=== PATIENT | female | born 1960 ===

== ENCOUNTER 2016-12-11 15:49 | Emergency (ER) | payer OTHER ==
[2016-12-11 16:07] VITALS: BP 112/81; PULSE 80; RESP 16; TEMP 98.4; O2SAT 97
[2016-12-11 17:24] LABS: BASO % 0.7 % (0.0-2.0); EOS % 0.2 % (0.0-4.0); HEMATOCRIT 38.6 % (34.0-47.0); LYMPH # 1.4 K/uL (1.0-4.3); LYMPH % 28.9 % (20.0-40.0); MEAN CELL VOLUME 92.2 fl (81.0-99.0); MEAN CORPUSCULAR HEMOGLOBIN 31.5 pg (27.0-31.0); MEAN CORPUSCULAR HGB CONC 34.2 g/dL (33.0-37.0); MEAN PLATELET VOLUME 8.1 fl (7.2-11.7); MONO # 0.4 K/uL (0.0-0.8); MONO % 9.1 % (0.0-10.0); NEUT % 61.1 % (50.0-75.0); NRBC % 0.1 % (0.0-0.0); RED CELL DISTRIBUTION WIDTH 13.7 % (11.5-14.5); WHITE BLOOD COUNT 4.9 K/uL (4.8-10.8)
[2016-12-11 17:44] LABS: ALB/GLOB RATIO 1.2 (1.0-2.1); ALKALINE PHOSPHATASE 77 U/L (38-126); ALT/SGPT 24 U/L (9-52); AST/SGOT 36 U/L (14-36); BILIRUBIN,TOTAL 0.3 mg/dl (0.2-1.3); BLOOD UREA NITROGEN 15 mg/dl (7-17); CALCIUM 9.9 mg/dL (8.4-10.2); CARBON DIOXIDE 31 mmol/L (22-30); CHLORIDE 103 mmol/L (98-107); GFR AFRICAN-AMERICAN > 60; GLUCOSE,RANDOM 105 mg/dL (65-105); POTASSIUM 4.7 MMOL/L (3.6-5.0); SODIUM 146 mmol/l (132-148); TOTAL PROTEIN 7.8 G/DL (6.3-8.2)
--- NOTE | 2016-12-11 17:48 | ED PDOC ---
HPI: General Adult Time Seen by Provider: 12/11/16 17:30 Chief Complaint (Nursing): Weakness/Neurological Deficit Chief Complaint (Provider): WEAKNESS History Per: Patient (56 Y/O FEMALE H/O THYROID ILLNESS HERE FOR WEAKNESS BILATERAL LOWER EXTREMITY. States she has not taken thyroid medication x 2months. Also notes ongoing back pain worsening recently. Patient has h/o TIA as well. Deniesa ny fevers/chills.) Past Medical History Reviewed: Historical Data, Nursing Documentation, Vital Signs Vital Signs: Last Vital Signs Temp 98.4 F 12/11/16 16:05 Pulse 80 12/11/16 16:05 Resp 16 12/11/16 16:05 BP 112/81 12/11/16 16:05 Pulse Ox 97 12/11/16 20:12 - Family History Family History: States: No Known Family Hx - Home Medications Home Medications: Ambulatory Orders Medication Instructions Recorded Levothyroxine [Synthroid] 0.1 mg PO DAILY #7 tab 12/11/16 - Allergies Allergies/Adverse Reactions: Allergies Allergy/AdvReac Type Severity Reaction Status Date / Time No Known Allergies Allergy Verified 12/11/16 16:05 Review of Systems ROS Statement: Except As Marked, All Systems Reviewed And Found Negative Physical Exam - Reviewed Nursing Documentation Reviewed: Yes Vital Signs Reviewed: Yes - Physical Exam Appears: Positive for: Well, Non-toxic, No Acute Distress Head Exam: Positive for: ATRAUMATIC, NORMAL INSPECTION, NORMOCEPHALIC Skin: Positive for: Normal Color, Warm, DRY Eye Exam: Positive for: EOMI, Normal appearance, PERRL ENT: Positive for: Normal ENT Inspection Neck: Positive for: Normal, Painless ROM Cardiovascular/Chest: Positive for: Regular Rate, Rhythm Respiratory: Positive for: CNT, Normal Breath Sounds Gastrointestinal/Abdominal: Positive for: Normal Exam, Bowel Sounds, Soft Back: Positive for: Normal Inspection Extremity: Positive for: Normal ROM Neurologic/Psych: Positive for: Alert, Oriented - Laboratory Results Result Diagrams: 12/11/16 17:15 12/11/16 17:15 - ECG O2 Sat by Pulse Oximetry: 97 - Progress ED Course And Treament: CT HEAD: IMPRESSION: 6 mm left basal ganglia lacunar infarct, appears chronic. Nonspecific white matter changes. Indeterminate 9 x 6 mm heterogeneous right calvarial lesion. Bone scan or MRI may be considered for further characterization. Disposition - Clinical Impression Clinical Impression: Weakness - Patient ED Disposition Is Patient to be Admitted: No - Disposition Referrals: [facility] [Outside] [facility] [place] [Outside] Disposition: Routine/Home Disposition Time: 20:32 Condition: FAIR Prescriptions: Levothyroxine [Synthroid] 0.1 mg PO DAILY #7 tab Instructions: Weakness (ED)
[2016-12-11 18:14] LABS: THYROID STIMULATING HORMONE 7.66 mIU/ML (0.46-4.68)
--- NOTE | 2016-12-11 18:48 | CT ---
PROCEDURE: CT HEAD WITHOUT CONTRAST. HISTORY: AMS COMPARISON: None available. TECHNIQUE: Axial computed tomography images were obtained through the head/brain without intravenous contrast. Radiation dose: Total exam DLP = 769.21 MGy-cm. This CT exam was performed using one or more of the following dose reduction techniques: Automated exposure control, adjustment of the mA and/or kV according to patient size, and/or use of iterative reconstruction technique. FINDINGS: HEMORRHAGE: No intracranial hemorrhage. BRAIN: No mass effect or edema. 6 mm left basal ganglia lacunar infarct (series 4, image 16). Scattered periventricular and subcortical white matter hypodensities, which are nonspecific, but often seen with chronic microvascular ischemic disease. Please note that MRI with diffusion imaging is more sensitive in the detection of acute ischemic event. VENTRICLES: No hydrocephalus. CALVARIUM: Indeterminate 9 x 6 mm heterogeneous right calvarial lesion (series 3, image 43 ; series 601, image 70). PARANASAL SINUSES: Unremarkable as visualized. No significant inflammatory changes. MASTOID AIR CELLS: Unremarkable as visualized. No inflammatory changes. OTHER FINDINGS: None. IMPRESSION: 6 mm left basal ganglia lacunar infarct, appears chronic. Nonspecific white matter changes. Indeterminate 9 x 6 mm heterogeneous right calvarial lesion. Bone scan or MRI may be considered for further characterization.
--- NOTE | 2016-12-12 08:26 | CARD ---
APPROVED REPORT EKG Measurement Heart [id number] [place] [id number] <Conclusion> Normal sinus rhythm Incomplete right bundle branch block Cannot rule out Anterior infarct, age undetermined Abnormal ECG
== END 2016-12-11 20:44 | disposition home or self-care (01) ==
LOC: H.ER 15:49
DX: R53.1 Weakness (principal); Z86.73 Personal history of transient ischemic attack (TIA), and cerebral infarction without residual deficits

== ENCOUNTER 2016-12-12 12:16 | Observation (INO) | payer OTHER ==
--- NOTE | 2016-12-12 12:51 | ED PDOC ---
Syncope/Near Syncope/Dizzyness Time Seen by Provider: 12/12/16 12:33 Chief Complaint (Nursing): Dizziness/Lightheaded Chief Complaint (Provider): Near Syncope History Per: Patient History/Exam Limitations: no limitations Onset/Duration Of Symptoms: Hrs Current Symptoms Are (Timing): Still Present Number Of Syncopal Episodes: 3 (3 episodes of near syncopal) Fall Associated With With Symptoms: No Severity: Mild Additional Complaint(s): Patient is a 56 year old female, who was seen in the ED yesterday, presents to the ED complaining of 3 episodes of near syncopal events with palpitations last night. Patient was seen yesterday for the same complaint and worked up. CT Head , Blood work, and EKG were all inconclusive and the patient was discharged and referred to outpatient clinic. Denies witness, loss of consciousness, seizure, or headache. PMD: none Past Medical History Reviewed: Historical Data, Nursing Documentation, Vital Signs Vital Signs: Last Vital Signs Temp 97.8 F 12/12/16 12:21 Pulse 82 12/12/16 12:21 Resp 18 12/12/16 12:21 BP 138/55 L 12/12/16 12:21 Pulse Ox 99 12/12/16 12:21 - Medical History PMH: Hypothyroidism - Surgical History Surgical History: No Surg Hx - Family History Family History: States: No Known Family Hx - Home Medications Home Medications: Ambulatory Orders Medication Instructions Recorded Levothyroxine [Synthroid] 0.1 mg PO DAILY #7 tab 12/11/16 - Allergies Allergies/Adverse Reactions: Allergies Allergy/AdvReac Type Severity Reaction Status Date / Time No Known Allergies Allergy Verified 12/11/16 16:05 Review of Systems ROS Statement: Except As Marked, All Systems Reviewed And Found Negative Constitutional: Positive for: Other (near syncope) Cardiovascular: Positive for: Palpitations Neurological: Negative for: Seizures, Headache, Other (no LOC) Physical Exam - Reviewed Nursing Documentation Reviewed: Yes Vital Signs Reviewed: Yes - Physical Exam Appears: Positive for: Well, Non-toxic, No Acute Distress Head Exam: Positive for: ATRAUMATIC, NORMAL INSPECTION, NORMOCEPHALIC Skin: Positive for: Normal Color, Warm, DRY Eye Exam: Positive for: Normal appearance, EOMI, PERRL Neck: Positive for: Normal, Painless ROM Cardiovascular/Chest: Positive for: Regular Rate, Rhythm. Negative for: Gallop , Murmur Respiratory: Positive for: Normal Breath Sounds. Negative for: Accessory Muscle Use, Rhonchi, Respiratory Distress Extremity: Positive for: Normal ROM Neurologic/Psych: Positive for: Alert, platform builder II-XII (intact), Oriented, Gait ( steady). Negative for: Motor/Sensory Deficits, Aphasia, Facial Droop - ECG O2 Sat by Pulse Oximetry: 99 (RA) Pulse Ox Interpretation: Normal Medical Decision Making Medical Decision Making: Time: 12:35 Impression: 56 y/o female c/o near syncopal episodes Plan: EKG Troponin Scribe Attestation: Documented by Nikolas Moran acting as a scribe for Heriberto Adrian MD. Scribe Attestation: All medical record entries made by the Scribe were at my direction and personally dictated by me. I have reviewed the chart and agree that the record accurately reflects my personal performance of the history, physical exam, medical decision making, and the department course for this patient. I have also personally directed, reviewed, and agree with the discharge instructions and disposition. Disposition - Clinical Impression Clinical Impression: Near syncope - Patient ED Disposition Is Patient to be Admitted: Yes - Disposition Disposition Time: 13:30 Condition: FAIR - Pt Status Changed To: Hospital Disposition Of: Observation - POA Present On Arrival: None
--- NOTE | 2016-12-12 13:51 | CP.PCM.HP ---
History of Present Illness - History of Present Illness History of Present Illness: 56 yo female with history of Hypothyroidism came in yesterday because of bilateral leg weakness. CT scan showed left basal ganglia infarct which appeared chronic. Patient was discharged in stable condition and was advised follow up in outpatient clinic. At home, around 2 this morning patient felt dizzy with palpitation and felt like passing out. Condition was spontaneously relieved but only to occur again twice. She denied chest pain or SOB. Present on Admission - Present on Admission Any Indicators Present on Admission: No History of DVT/PE: No History of Uncontrolled Diabetes: No Urinary Catheter: No Decubitus Ulcer Present: No Review of Systems - Review of Systems All systems: reviewed and no additional remarkable complaints except (aside from those mentioned above, 12 point system review were negative by me) Past Patient History - Past Social History Smoking Status: Never Smoked Chewing Tobacco Use: No Cigar Use: No Alcohol: None Drugs: Denies - CARDIAC Hx Cardiac Disorders: No - PULMONARY Hx Respiratory Disorders: No - NEUROLOGICAL Hx Neurological Disorder: No - HEENT Hx HEENT Problems: No - RENAL Hx Chronic Kidney Disease: No - ENDOCRINE/METABOLIC Hx Hypothyroidism: Yes - HEMATOLOGICAL/ONCOLOGICAL Hx Blood Disorders: No - INTEGUMENTARY Hx Dermatological Problems: No - MUSCULOSKELETAL/RHEUMATOLOGICAL Hx Musculoskeletal Disorders: No - GASTROINTESTINAL Hx Gastrointestinal Disorders: No - GENITOURINARY/GYNECOLOGICAL Hx Genitourinary Disorders: No - PSYCHIATRIC Hx Psychophysiologic Disorder: No Hx Substance Use: No - SURGICAL HISTORY Hx Surgeries: No - ANESTHESIA Hx Anesthesia: No Meds Allergies/Adverse Reactions: Allergies Allergy/AdvReac Type Severity Reaction Status Date / Time No Known Allergies Allergy Verified 12/11/16 16:05 Physical Exam - Constitutional Appears: No Acute Distress - Head Exam Head Exam: ATRAUMATIC - Eye Exam Eye Exam: EOMI, PERRL. absent: Nystagmus - ENT Exam ENT Exam: Mucous Membranes Moist - Neck Exam Neck exam: Negative for: Meningismus - Respiratory Exam Respiratory Exam: NORMAL BREATHING PATTERN. absent: Rhonchi, Wheezes, Respiratory Distress - Cardiovascular Exam Cardiovascular Exam: REGULAR RHYTHM, +S1, +S2 - GI/Abdominal Exam GI & Abdominal Exam: Soft. absent: Tenderness - Rectal Exam Rectal Exam: Deferred - Extremities Exam Extremities exam: Negative for: calf tenderness, pedal edema - Back Exam Back exam: absent: tenderness - Neurological Exam Neurological exam: Alert, Oriented x3 - Psychiatric Exam Psychiatric exam: Normal Affect - Skin Skin Exam: Dry, Intact Results - Vital Signs Recent Vital Signs: Last Vital Signs Temp 97.8 F 12/12/16 12:21 Pulse 82 12/12/16 12:21 Resp 18 12/12/16 12:21 BP 138/55 L 12/12/16 12:21 Pulse Ox 99 12/12/16 13:30 Assessment & Plan (1) Near syncope Status: Acute Comment: place on observation in telemetry. serial Troponin and EKG. ECHO. Carotid Doppler (2) Hypothyroid Status: Chronic Comment: TSH. Levothyroxine 100mcg PO daily
[2016-12-12 15:37] VITALS: BMI 25.2
--- NOTE | 2016-12-12 18:02 | US ---
Carotid ultrasound Indication: Near syncope Technique: Grayscale, color, and duplex Doppler imaging of the bilateral carotid and vertebral arteries. Findings: Peak systolic velocities are as follows (cm/sec) Right: CCA - proximal 64.0 CCA - mid 33.5 CCA- distal 47.4 ECA 42.4 ICA - proximal 64.0 ICA - mid 53.5 ICA - distal 47.4 Vertebral- antegrade 51.7 ICA/CCA- 1.3 Left: CCA - proximal 67.2 CCA - mid 56.8 CCA- distal 58.1 ECA 54.3 ICA - proximal 43.2 ICA - mid 44.2 ICA - distal 54.3 Vertebral- antegrade 3.1 ICA/CCA- 0.9 Impression: No evidence of hemodynamically significant stenosis. Measurement of carotid stenosis is based on velocity parameters that correlate measurement of carotid stenosis is based on velocity parameters that correlate the residual internal carotid diameter with that of the more distal vessel in accordance with the [place] symptomatic carotid endarterectomy Trial (NASCET).
[2016-12-13 06:53] LABS: BASO % 0.7 % (0.0-2.0); EOS % 0.1 % (0.0-4.0); HEMATOCRIT 37.3 % (34.0-47.0); LYMPH # 1.3 K/uL (1.0-4.3); MEAN CELL VOLUME 91.9 fl (81.0-99.0); MEAN CORPUSCULAR HEMOGLOBIN 30.9 pg (27.0-31.0); MEAN CORPUSCULAR HGB CONC 33.7 g/dL (33.0-37.0); MEAN PLATELET VOLUME 8.6 fl (7.2-11.7); MONO # 0.4 K/uL (0.0-0.8); NEUT # 2.4 K/uL (1.8-7.0); NEUT % 59.2 % (50.0-75.0); NRBC % 0.2 % (0.0-0.0); RED CELL DISTRIBUTION WIDTH 13.8 % (11.5-14.5)
[2016-12-13 08:13] VITALS: BP 113/71; PULSE 65; RESP 20; TEMP 98.2; O2SAT 97
--- NOTE | 2016-12-13 08:20 | CARD ---
APPROVED REPORT EXAM: Two-dimensional and M-mode echocardiogram with Doppler and color Doppler. Other Information Quality : GoodRhythm : NSR INDICATION Palpitations 2D DIMENSIONS IVSd0.74 (0.7-1.1cm)LVDd3.62 (3.9-5.9cm) LVOT Diameter2.21 (1.8-2.4cm)PWd0.55 (0.7-1.1cm) IVSs1.15 (0.8-1.2cm)LVDs2.07 (2.5-4.0cm) FS (%) 43.0 %PWs1.16 (0.8-1.2cm) M-Mode DIMENSIONS Left Atrium (MM)2.90 (2.5-4.0cm)IVSd0.69 (0.7-1.1cm) Aortic Root3.01 (2.2-3.7cm)LVDd5.05 (4.0-5.6cm) Aortic Cusp Exc.1.79 (1.5-2.0cm)PWd0.69 (0.7-1.1cm) IVSs1.57 cmFS (%) 51 % LVDs2.48 (2.0-3.8cm)PWs1.54 cm Mitral Valve MV E Mebaxbwc91.1cm/sMV DECEL [id number] A Oohrrhrs16.4cm/s MV EVL60gsH/A ratio1.4MVA (PHT)3.94cm2 TDI E/Lateral E'0.0E/Medial E'0.0 Pulmonary Valve PV Peak Abtdtvav99.5cm/s Tricuspid Valve TR Peak Tksjosbk837uq/sRAP SVYMFLUK59wpEbNG Peak Gr.15mmHg ZEPU88gbAi LEFT VENTRICLE The left ventricle is normal size. There is normal left ventricular wall thickness. Left ventricle systolic function is normal. The Ejection Fraction is 60-65%. There is normal LV segmental wall motion. The left ventricular diastolic function is normal. RIGHT VENTRICLE The right ventricle is normal size. There is normal right ventricular wall thickness. The right ventricular systolic function is normal. ATRIA The left atrium size is normal. The right atrium size is normal. AORTIC VALVE The aortic valve is normal in structure and function. No aortic regurgitation is present. There is no aortic valvular stenosis. MITRAL VALVE The mitral valve is normal in structure and function. There is no evidence of mitral valve prolapse. There is no mitral valve stenosis. There is no mitral valve regurgitation noted. TRICUSPID VALVE The tricuspid valve is normal in structure. There is mild to moderate tricuspid regurgitation. Right ventricular systolic pressure is estimated at 26 mmHg. There is no pulmonary hypertension. PULMONIC VALVE The pulmonary valve is normal in structure and function. There is no pulmonic valvular regurgitation. GREAT VESSELS The aortic root is normal in size. The IVC is normal in size and collapses >50% with inspiration. PERICARDIAL EFFUSION The pericardium appears normal. <Conclusion> The left ventricle is normal size. There is normal left ventricular wall thickness. There is normal LV segmental wall motion. Left ventricle systolic function is normal. The Ejection Fraction is 60-65%. The left ventricular diastolic function is normal.
[2016-12-13 08:39] LABS: CHLORIDE 106 mmol/L (98-107); POTASSIUM 4.8 MMOL/L (3.6-5.0); SODIUM 144 mmol/l (132-148)
[2016-12-13 08:42] LABS: BLOOD UREA NITROGEN 16 mg/dl (7-17); CARBON DIOXIDE 26 mmol/L (22-30); GFR AFRICAN-AMERICAN > 60; GLUCOSE,RANDOM 85 mg/dL (65-105)
[2016-12-13 08:43] LABS: CALCIUM 9.4 mg/dL (8.4-10.2)
--- NOTE | 2016-12-13 08:48 | CARD ---
APPROVED REPORT EKG Measurement Heart [id number] [place] [id number] <Conclusion> Normal sinus rhythm Incomplete right bundle branch block Borderline ECG
[2016-12-13 08:49] LABS: CHOLESTEROL 267 mg/dL (0-199)
[2016-12-13] MEDS ORDERED: Pantoprazole 40 mg EC Tab PO SCH (09:00)
[2016-12-13] MEDS ORDERED: Levothyroxine 100 MCG TAB PO SCH (09:00)
[2016-12-13] MEDS ORDERED: Enoxaparin 40 mg Syringe SC SCH (09:00)
--- NOTE | 2016-12-13 11:25 | CP.PCM.DIS ---
Provider - Provider Date of Admission: 12/12/16 13:29 Attending physician: Rob Wellington MD Time Spent in preparation of Discharge (in minutes): 30 Diagnosis - Discharge Diagnosis (1) Near syncope Status: Acute Comment: no recurrence as in patient. work ups were negative (2) Hypothyroid Status: Chronic Comment: resume Levothyroxine Hospital Course - Lab Results Lab Results: Most Recent Lab Values WBC 4.0 K/uL (4.8-10.8) L 12/13/16 05:40 RBC 4.06 Mil/uL (3.80-5.20) 12/13/16 05:40 Hgb 12.6 g/dL (12.0-16.0) 12/13/16 05:40 Hct 37.3 % (34.0-47.0) 12/13/16 05:40 MCV 91.9 fl (81.0-99.0) 12/13/16 05:40 MCH 30.9 pg (27.0-31.0) 12/13/16 05:40 MCHC 33.7 g/dL (33.0-37.0) 12/13/16 05:40 RDW 13.8 % (11.5-14.5) 12/13/16 05:40 Plt Count 213 K/uL (130-400) 12/13/16 05:40 MPV 8.6 fl (7.2-11.7) 12/13/16 05:40 Neut % (Auto) 59.2 % (50.0-75.0) 12/13/16 05:40 Lymph % (Auto) 31.0 % (20.0-40.0) 12/13/16 05:40 Russell % (Auto) 9.0 % (0.0-10.0) 12/13/16 05:40 Eos % (Auto) 0.1 % (0.0-4.0) 12/13/16 05:40 Baso % (Auto) 0.7 % (0.0-2.0) 12/13/16 05:40 Neut # 2.4 K/uL (1.8-7.0) 12/13/16 05:40 Lymph # 1.3 K/uL (1.0-4.3) 12/13/16 05:40 Russell # 0.4 K/uL (0.0-0.8) 12/13/16 05:40 Eos # 0.0 K/uL (0.0-0.7) 12/13/16 05:40 Baso # 0.0 K/uL (0.0-0.2) 12/13/16 05:40 Sodium 144 mmol/l (132-148) 12/13/16 05:35 Potassium 4.8 MMOL/L (3.6-5.0) 12/13/16 05:35 Chloride 106 mmol/L (98-107) 12/13/16 05:35 Carbon Dioxide 26 mmol/L (22-30) 12/13/16 05:35 Anion Gap 17 (10-20) 12/13/16 05:35 BUN 16 mg/dl (7-17) 12/13/16 05:35 Creatinine 0.7 mg/dL (0.7-1.2) 12/13/16 05:35 Est GFR ( Amer) > 60 12/13/16 05:35 Est GFR (Non-Af Amer) > 60 12/13/16 05:35 Random Glucose 85 mg/dL (65-105) 12/13/16 05:35 Calcium 9.4 mg/dL (8.4-10.2) 12/13/16 05:35 Troponin I < 0.0120 ng/mL (0.00-0.120) 12/13/16 06:43 Triglycerides 76 mg/DL (0-149) 12/13/16 05:35 Cholesterol 267 mg/dL (0-199) H 12/13/16 05:35 LDL Cholesterol Direct 148 mg/dL (0-129) H 12/13/16 05:35 HDL Cholesterol 62 MG/DL (30-70) 12/13/16 05:35 - Hospital Course Hospital Course: 56 yo female with history of Hypothyroidism came in the previous day because of bilateral leg weakness. CT scan showed left basal ganglia infarct which appeared chronic. Patient was discharged in stable condition and was advised follow up in outpatient clinic. At home, patient started feeling dizzy with palpitation and felt like passing out. Episode was relieved spontaneously. Patient went back and was placed on observation. There was no recurrence of the symptoms while in patient. Serial Troponins, ECHO and Carotid Doppler were negative. Patient was discharged in stable condition and was advised to follow up in the [facility] or with his PCP in a week. Discharge Exam - Head Exam Head Exam: ATRAUMATIC - Eye Exam Eye Exam: absent: Scleral icterus - ENT Exam ENT Exam: Mucous Membranes Moist - Respiratory Exam Respiratory Exam: NORMAL BREATHING PATTERN. absent: Wheezes, Respiratory Distress - Cardiovascular Exam Cardiovascular Exam: REGULAR RHYTHM, +S1, +S2 - GI/Abdominal Exam GI & Abdominal Exam: Soft. absent: Tenderness - Rectal Exam Rectal Exam: Deferred - Neurological Exam Neurological exam: Alert, Oriented x3 - Psychiatric Exam Psychiatric exam: Normal Affect - Skin Skin Exam: Dry, Intact Discharge Plan - Discharge Medications Prescriptions: Levothyroxine [Synthroid] 100 mcg PO DAILY #30 - Follow Up Plan Condition: FAIR Disposition: HOME/ ROUTINE
== END 2016-12-13 12:08 | disposition home or self-care (01) ==
LOC: H.ER 12:16 → H.ERHOLD 13:29 → H.TEL 15:18
DX: R55 Syncope and collapse (principal); E03.9 Hypothyroidism, unspecified

== ENCOUNTER 2017-06-12 10:23 | Emergency (ER) | payer SELFPAY ==
[2017-06-12 10:35] VITALS: BP 119/78; PULSE 69; RESP 16; TEMP 97; O2SAT 99
[2017-06-12 10:36] VITALS: BMI 25.8
--- NOTE | 2017-06-12 11:52 | CARD ---
APPROVED REPORT EKG Measurement Heart [id number] [id number] <Conclusion> Normal sinus rhythm Normal ECG
--- NOTE | 2017-06-12 13:55 | ED PDOC ---
HPI: General Adult Time Seen by Provider: 06/12/17 10:54 Chief Complaint (Nursing): Dizziness/Lightheaded Chief Complaint (Provider): Dizziness History Per: Patient History/Exam Limitations: no limitations Onset/Duration Of Symptoms: Days (5) Additional Complaint(s): Lauren Gambino is a 57 year old female, with a past medical history of MS , who presents to the emergency department complaining of dizziness associated with fatigue onset 5 days ago. Patient reports feeling dizzy and lightheaded, like she is about to pass out when walking. She feels fatigued and tired all the time. Patient is actively being treated for MS and is currently taking Tecfidera for 4 months with a few days of fatigue, dizziness, and double vision. She was diagnosed [address] Lopez. She had an MRI and other studies done on her earlier this year. She denies any headache, fever, abdominal pain, vomiting, chest pain, shortness of breath or palpitations. No further medical complaints. PMD: Joey Britt Past Medical History Reviewed: Historical Data, Nursing Documentation, Vital Signs Vital Signs: Last Vital Signs Temp 97.0 F L 06/12/17 10:35 Pulse 69 06/12/17 10:35 Resp 16 06/12/17 10:35 BP 119/78 06/12/17 10:35 Pulse Ox 99 06/12/17 14:15 - Medical History PMH: Anemia, Gastritis, Hypercholesterolemia, Hypothyroidism, Multiple Sclerosis (diagnosed 3months), TIA (stoke 5 yrs ago) Denies: HIV, Chronic Kidney Disease - Surgical History Surgical History: Cholecystectomy - Family History Family History: States: No Known Family Hx - Social History Current smoker - smoking cessation education provided: No Alcohol: None Drugs: Denies - Home Medications Home Medications: Ambulatory Orders Medication Instructions Recorded Ascorbic Acid [Vitamin C with Pili 1,000 mg PO DAILY 12/12/16 Hips] Aspirin [Ecotrin] 81 mg PO DAILY 12/12/16 Cyanocobalamin [Vitamin B12 1000 1,000 mcg PO DAILY 12/12/16 mcg Tab] Garlic [Garlic Oil] 1,000 mg PO DAILY 12/12/16 Multivitamin [Multi-Vitamin Daily] 1 tab PO DAILY 12/12/16 Levothyroxine [Synthroid] 100 mcg PO DAILY #30 12/13/16 - Allergies Allergies/Adverse Reactions: Allergies Allergy/AdvReac Type Severity Reaction Status Date / Time No Known Allergies Allergy Verified 12/11/16 16:05 Review of Systems ROS Statement: Except As Marked, All Systems Reviewed And Found Negative Constitutional: Positive for: Weakness (fatigue). Negative for: Fever Cardiovascular: Positive for: Light Headedness. Negative for: Chest Pain, Palpitations Respiratory: Negative for: Shortness of Breath Gastrointestinal: Negative for: Vomiting, Abdominal Pain Neurological: Positive for: Dizziness. Negative for: Headache Physical Exam - Reviewed Nursing Documentation Reviewed: Yes Vital Signs Reviewed: Yes - Physical Exam Appears: Positive for: Non-toxic Head Exam: Positive for: ATRAUMATIC, NORMAL INSPECTION, NORMOCEPHALIC Skin: Positive for: Normal Color, Warm, Dry Eye Exam: Positive for: EOMI, Normal appearance, PERRL Neck: Positive for: Normal, Painless ROM, Supple Cardiovascular/Chest: Positive for: Regular Rate, Rhythm. Negative for: Murmur Respiratory: Positive for: Normal Breath Sounds. Negative for: Respiratory Distress Gastrointestinal/Abdominal: Positive for: Normal Exam, Bowel Sounds, Soft. Negative for: Tenderness, Guarding, Rebound Back: Positive for: Normal Inspection. Negative for: Vertebral Tenderness Extremity: Positive for: Normal ROM. Negative for: Pedal Edema, Deformity, Swelling Neurologic/Psych: Positive for: Alert, Oriented (x3). Negative for: district administrative assistant II-XII (No deficits), Motor/Sensory Deficits - ECG O2 Sat by Pulse Oximetry: 99 (RA) Pulse Ox Interpretation: Normal Medical Decision Making Medical Decision Making: Initial Impression: dizziness, fatigue and double vision (exacerbation of MS), side effects from the Tacfidera. Differential includes: UTI, anemia Initial Plan: --Urine dipstick --EKG --Antiver 25 mg PO --reevaluation Dr Lopez called for recommendations. Patient does not want to wait for Dr Lopez call back. Scribe Attestation: Documented by Vince Vazquez, acting as a scribe for Delaney Pride MD Provider Scribe Attestation: All medical record entries made by the Scribe were at my direction and personally dictated by me. I have reviewed the chart and agree that the record accurately reflects my personal performance of the history, physical exam, medical decision making, and the department course for this patient. I have also personally directed, reviewed, and agree with the discharge instructions and disposition. Disposition - Clinical Impression Clinical Impression: Dizziness - Patient ED Disposition Is Patient to be Admitted: No Doctor Will See Patient In The: Office Counseled Patient/Family Regarding: Studies Performed, Diagnosis, Need For Followup - Disposition Referrals: Chris Lopez MD [Staff Provider] - Disposition: Routine/Home Disposition Time: 14:14 Condition: GOOD Additional Instructions: Follow up with your neurologist in 2 days. Continue taking your medications. Instructions: Dizziness (ED)
== END 2017-06-12 14:20 | disposition home or self-care (01) ==
LOC: H.ER 10:23
DX: R42 Dizziness and giddiness (principal); G35 Multiple sclerosis; D64.9 Anemia, unspecified; Z86.73 Personal history of transient ischemic attack (TIA), and cerebral infarction without residual deficits; Z79.82 Long term (current) use of aspirin; E78.00 Pure hypercholesterolemia, unspecified